=== PATIENT | male | born 1970 | race Caucasian/White ===

== ENCOUNTER → 2017-01-20 | Outpatient (CLI) | payer BC ==
[~2017-01-20] MED LIST: ACCUPRIL20 MG PO; ASPIR 8181 MG PO; CIPRO500 MG PO; CLINDAMYCIN HC300 MG PO; CYCLOBENZAPRINE10 MG PO; Fioricet 325 MG1 TAB PO; HYDROCODONE BIT1 T11 PO; IBU800 M1 PO; LOMOTIL 0.025 M1 TA1 PO; MOTRIN800 MG PO; MULTI VITAMINS1 TAB PO; Motrin,Rufen800 MG PO; NORCO 5-325 TA1 EACH PO; QUINAPRIL10 MG PO; ULTRAM50 MG PO; ZOFRAN ODT4 MG SL; Zofran4 MG PO; [UNRECOGNIZED DRUG - REMARK]
[2017-01-20 14:14] LABS: HEMATOCRIT 41.9 % (42.0-52.0); HEMOGLOBIN 14.4 g/dl (14.0-18.0); MEAN CELL VOLUME 94.8 fl (80.0-94.0); MEAN CORPUSCULAR HGB 32.6 pg (27.0-31.0); MEAN CORPUSCULAR HGB CONC 34.4 g/dl (33.0-37.0); MEAN PLATELET VOLUME 10.5 fl (9.6-12.3); RED BLOOD COUNT 4.42 10*6/uL (4.50-5.90); RED CELL DISTRI WIDTH 11.9 % (0-14.5); WHITE BLOOD COUNT 6.3 10*3/uL (4.8-10.8)
[2017-01-20 14:30] LABS: ALBUMIN 3.9 gm/dl (3.1-4.5); ALKALINE PHOSPHATASE 50 U/L (45-117); BUN 14 mg/dl (7-24); CHLORIDE 108 mmol/L (98-107); CHOLESTEROL 160 mg/dL (<200); CREATININE 0.97 mg/dL (0.70-1.30); HDL CHOLESTEROL 39 mg/dl (40-60); LDL CHOLESTEROL 106 mg/dL (9-159); POTASSIUM 4.5 mmol/L (3.5-5.1); SGOT/AST 13 IU/L (3-35); SGPT/ALT 16 U/L (12-78); SODIUM 139 mmol/L (136-145); TOTAL PROTEIN 7.1 gm/dL (6.4-8.2); TRIGLYCERIDES 74 mg/dl (<150); VLDL CHOLESTEROL 15 mg/dL (6-40)
== END | disposition home or self-care (01) ==
LOC: LAB 13:49
PROVIDERS: Family Medicine
DX: I10 Essential (primary) hypertension (principal); E78.00 Pure hypercholesterolemia, unspecified; E74.9 Disorder of carbohydrate metabolism, unspecified

== ENCOUNTER 2017-05-28 08:01 | Emergency (ER) | payer BC ==
[~2017-05-28] VITALS: Ht 182.8 cm; Wt 83.9 kg
== END 2017-05-28 09:05 | disposition home or self-care (01) ==
LOC: ED 08:01
DX: M76.61 Achilles tendinitis, right leg (principal); F10.10 Alcohol abuse, uncomplicated; Z79.899 Other long term (current) drug therapy

== ENCOUNTER → 2017-07-11 | Outpatient (CLI) | payer BC ==
[2017-07-11 09:42] LABS: HEMATOCRIT 40.6 % (42.0-52.0); HEMOGLOBIN 13.6 g/dl (14.0-18.0); MEAN CELL VOLUME 93.8 fl (80.0-94.0); MEAN CORPUSCULAR HGB 31.4 pg (27.0-31.0); MEAN CORPUSCULAR HGB CONC 33.5 g/dl (33.0-37.0); MEAN PLATELET VOLUME 11.2 fl (9.6-12.3); RED BLOOD COUNT 4.33 10*6/uL (4.50-5.90); RED CELL DISTRI WIDTH 11.9 % (0-14.5); WHITE BLOOD COUNT 5.6 10*3/uL (4.8-10.8)
[2017-07-11 10:10] LABS: ALBUMIN 3.8 gm/dl (3.1-4.5); ALKALINE PHOSPHATASE 42 U/L (45-117); BUN 14 mg/dl (7-24); CHLORIDE 105 mmol/L (98-107); CHOLESTEROL 179 mg/dL (<200); CREATININE 0.97 mg/dL (0.70-1.30); HDL CHOLESTEROL 37 mg/dl (40-60); LDL CHOLESTEROL 115 mg/dL (9-159); POTASSIUM 5.3 mmol/L (3.5-5.1); SGOT/AST 12 IU/L (3-35); SGPT/ALT 18 U/L (12-78); SODIUM 139 mmol/L (136-145); TOTAL PROTEIN 6.8 gm/dL (6.4-8.2); TRIGLYCERIDES 135 mg/dl (<150); VLDL CHOLESTEROL 27 mg/dL (6-40)
== END | disposition home or self-care (01) ==
LOC: LAB 09:06
PROVIDERS: Family Medicine
DX: E78.00 Pure hypercholesterolemia, unspecified (principal); I10 Essential (primary) hypertension; R07.81 Pleurodynia; R79.89 Other specified abnormal findings of blood chemistry

== ENCOUNTER 2017-11-04 17:00 | Emergency (ER) | payer SELFPAY ==
[~2017-11-04] VITALS: Wt 83.9 kg
[2017-11-04] MEDS ORDERED: DELTASONE20 M1 PO (17:07)
[2017-11-04] MEDS ORDERED: BENADRYL25 M2 PO (17:07)
== END 2017-11-04 17:26 | disposition home or self-care (01) ==
LOC: ED 17:00
DX: S60.562A Insect bite (nonvenomous) of left hand, initial encounter (principal); T78.40XA Allergy, unspecified, initial encounter; Z79.899 Other long term (current) drug therapy; Z79.82 Long term (current) use of aspirin; W57.XXXA Bitten or stung by nonvenomous insect and other nonvenomous arthropods, initial encounter; Y93.89 Activity, other specified; Y92.89 Other specified places as the place of occurrence of the external cause; Y99.8 Other external cause status

== ENCOUNTER 2020-02-20 19:47 | Emergency (ER) | payer SELFPAY ==
[~2020-02-20] VITALS: Ht 180.3 cm; Wt 77.1 kg
[~2020-02-20 19:47] MED LIST changes: +BENADRYL25 M2 PO; +DELTASONE20 M1 PO
[2020-02-20] MEDS ORDERED: CYCLOBENZAPRINE5 M3 PO (21:09)
[2020-02-20] MEDS ORDERED: MEDROL DOSEPAK4 MG PO (21:43)
[2020-02-20] MEDS ORDERED: ROBAXIN-750750 MG PO (21:43)
== END 2020-02-20 21:50 | disposition home or self-care (01) ==
LOC: ED 19:47
DX: M54.41 Lumbago with sciatica, right side (principal); Z79.899 Other long term (current) drug therapy

== ENCOUNTER → 2020-07-17 | Outpatient (CLI) | payer BC ==
[~2020-07-17] MED LIST changes: +CYCLOBENZAPRINE5 M3 PO; +MEDROL DOSEPAK4 MG PO; +ROBAXIN-750750 MG PO
[2020-07-17 09:59] LABS: HEMATOCRIT 44.2 % (42.0-52.0); MEAN CELL VOLUME 94.4 fl (80.0-94.0); MEAN CORPUSCULAR HGB 31.4 pg (27.0-31.0); MEAN CORPUSCULAR HGB CONC 33.3 g/dl (33.0-37.0); RED BLOOD COUNT 4.68 10*6/uL (4.50-5.90); RED CELL DISTRI WIDTH 11.9 % (0-14.5); WHITE BLOOD COUNT 6.7 10*3/uL (4.8-10.8)
[2020-07-17 10:28] LABS: ALKALINE PHOSPHATASE 53 U/L (45-117); BUN 16 mg/dl (7-24); CHLORIDE 112 mmol/L (98-107); CHOLESTEROL 181 mg/dL (<200); CREATININE 0.88 mg/dL (0.70-1.30); HDL CHOLESTEROL 42 mg/dl (40-60); LDL CHOLESTEROL 116 mg/dL (9-159); POTASSIUM 4.6 mmol/L (3.5-5.1); SGOT/AST 13 IU/L (3-35); SGPT/ALT 20 U/L (12-78); SODIUM 143 mmol/L (136-145); TOTAL PROTEIN 7.4 gm/dL (6.4-8.2); TRIGLYCERIDES 114 mg/dl (<150); VLDL CHOLESTEROL 23 mg/dL (6-40)
[2020-07-17 13:08] LABS: VITAMIN D, 25-HYDROXY 27.3 ng/mL (30-100)
== END | disposition home or self-care (01) ==
LOC: LAB 09:36
PROVIDERS: ATTEND Family Medicine
DX: Z12.5 Encounter for screening for malignant neoplasm of prostate (principal); E55.9 Vitamin D deficiency, unspecified; R10.9 Unspecified abdominal pain; M79.673 Pain in unspecified foot; Z13.220 Encounter for screening for lipoid disorders

== ENCOUNTER → 2020-08-14 | Outpatient (CLI) | payer BC | END | disposition home or self-care (01) | LOC: COVID19 08:45 | PROVIDERS: ATTEND Family Medicine | DX: R11.2 Nausea with vomiting, unspecified (principal); Z20.822 Contact with and (suspected) exposure to COVID-19 ==

== ENCOUNTER 2022-03-17 20:42 | Emergency (ER) | payer OTHER ==
[~2022-03-17] VITALS: Ht 177.8 cm; Wt 90.7 kg
[2022-03-17] MEDS ORDERED: NAPROXEN250 MG PO (22:04)
[2022-03-17] MEDS ORDERED: METHOCARBAMOL750 M1 PO (22:04)
== END 2022-03-17 22:16 | disposition home or self-care (01) ==
LOC: ED 20:42
DX: S29.011A Strain of muscle and tendon of front wall of thorax, initial encounter (principal); Z79.82 Long term (current) use of aspirin; X50.9XXA Other and unspecified overexertion or strenuous movements or postures, initial encounter; Y93.89 Activity, other specified; Y92.89 Other specified places as the place of occurrence of the external cause; Y99.8 Other external cause status

== ENCOUNTER 2022-03-26 23:27 | Emergency (ER) | payer OTHER ==
[~2022-03-26] VITALS: Ht 177.8 cm; Wt 90.7 kg
[~2022-03-26 23:27] MED LIST changes: +METHOCARBAMOL750 M1 PO; +NAPROXEN250 MG PO
[2022-03-27] MEDS ORDERED: PREDNISONE20 M1 PO (05:35)
[2022-03-27] MEDS ORDERED: LIDODERM1 EACH T (05:35)
[2022-03-27] MEDS ORDERED: GABAPENTIN400 MG PO (05:35)
[2022-03-27] MEDS ORDERED: CYCLOBENZAPRINE10 MG PO (05:35)
[2022-03-27] MEDS ORDERED: RELAFEN500 M1 PO (05:35)
== END 2022-03-27 06:20 | disposition home or self-care (01) ==
LOC: ED 23:27
DX: M54.41 Lumbago with sciatica, right side (principal); Z79.82 Long term (current) use of aspirin; Z79.899 Other long term (current) drug therapy; Z98.890 Other specified postprocedural states

== ENCOUNTER 2022-08-22 17:11 | Emergency (ER) | payer OTHER ==
[~2022-08-22] VITALS: Ht 177.8 cm; Wt 90.7 kg
[~2022-08-22 17:11] MED LIST changes: +GABAPENTIN400 MG PO; +LIDODERM1 EACH T; +PREDNISONE20 M1 PO; +RELAFEN500 M1 PO
[2022-08-22 18:20] LABS: BASO % 0.5 % (0.0-1.0); EOS # 0.2 10*3/uL (0.0-0.4); EOS % 2.6 % (1.0-4.0); HEMATOCRIT 46.2 % (42.0-52.0); LYMPH # 2.6 10*3/uL (1.3-4.4); LYMPH % 32.2 % (27.0-41.0); MEAN CELL VOLUME 93.1 fl (80.0-94.0); MEAN CORPUSCULAR HGB 31.3 pg (27.0-31.0); MEAN CORPUSCULAR HGB CONC 33.5 g/dl (33.0-37.0); MEAN PLATELET VOLUME 10.8 fl (9.6-12.3); MONO # 0.4 10*3/uL (0.1-1.0); MONO % 5.2 % (3.0-9.0); NEUT # 4.8 10*3/uL (2.3-7.9); NEUT % 59.3 % (47.0-73.0); PLATELET COUNT AUTOMATED 236 10*3/uL (130-400); RED BLOOD COUNT 4.96 10*6/uL (4.50-5.90); RED CELL DISTRI WIDTH 11.6 % (0-14.5); WHITE BLOOD COUNT 8.1 10*3/uL (4.8-10.8)
[2022-08-22 18:35] LABS: ACT PARTIAL THROMBO TIME 27.6 SECONDS (20.0-32.1)
[2022-08-22 18:41] LABS: ALKALINE PHOSPHATASE 56 U/L (46-116); BUN 9 mg/dl (9-23); CHLORIDE 107 mmol/L (98-107); POTASSIUM 5.4 mmol/L (3.4-5.1); SGPT/ALT 10 U/L (10-49); TOTAL PROTEIN 7.3 gm/dL (6.0-8.0)
[2022-08-22] MEDS ORDERED: CARAFATE1 G1 PO (20:24)
[2022-08-22] MEDS ORDERED: PROTONIX40 MG PO (20:24)
[2022-08-22 20:26] VITALS: BP 126/82
[2022-08-22 20:41] VITALS: BP 133/78
[2022-08-22 21:11] VITALS: BP 137/96
[2022-08-22 21:26] VITALS: BP 116/89
== END 2022-08-22 20:00 | disposition home or self-care (01) ==
LOC: ED 17:11
PROVIDERS: Internal Medicine
DX: T18.128A Food in esophagus causing other injury, initial encounter (principal); W22.8XXA Striking against or struck by other objects, initial encounter; Y93.89 Activity, other specified; Y92.89 Other specified places as the place of occurrence of the external cause; Y99.8 Other external cause status

== ENCOUNTER 2022-12-22 12:15 | Emergency (ER) | payer OTHER ==
[~2022-12-22] VITALS: Ht 177.8 cm; Wt 86.2 kg
[~2022-12-22 12:15] MED LIST changes: +CARAFATE1 G1 PO; +PROTONIX40 MG PO
[2022-12-22] MEDS ORDERED: EPIPEN 2-P0.3 MG/0.3 IJ (12:36)
[2022-12-22] MEDS ORDERED: PREDNISONE50 MG PO (13:37)
== END 2022-12-22 13:43 | disposition home or self-care (01) ==
LOC: ED 12:15
DX: T78.40XA Allergy, unspecified, initial encounter (principal); Z91.030 Bee allergy status; X58.XXXA Exposure to other specified factors, initial encounter

== ENCOUNTER 2024-03-31 08:31 | Emergency (ER) | payer OTHER ==
[~2024-03-31] VITALS: Wt 83.9 kg
[~2024-03-31 08:31] MED LIST changes: +EPIPEN 2-P0.3 MG/0.3 IJ; +PREDNISONE50 MG PO
[2024-03-31] MEDS ORDERED: Acetaminophen/Oxycodone 5 MG/325 MG TABLET PO ONE (08:50)
[2024-03-31] MEDS ORDERED: PREDNISONE20 M1 PO (08:54)
[2024-03-31] MEDS ORDERED: MELOXICAM15 MG PO (08:54)
== END 2024-03-31 09:01 | disposition home or self-care (01) ==
LOC: ED 08:31
DX: M25.572 Pain in left ankle and joints of left foot (principal); F14.90 Cocaine use, unspecified, uncomplicated; Z91.030 Bee allergy status